=== PATIENT | male | born 1980 | race Caucasian/White ===

== ENCOUNTER 2024-08-21 12:59 | Emergency (ER) | payer OTHER, SELFPAY ==
--- NOTE | ~2024-08-21 | XR_ITS ---
EXAMINATION: XR forearm LT 2V DATE: 08/21/2024 14:33 INDICATION: Left forearm laceration. TECHNIQUE: 2 views of left forearm were obtained. COMPARISON: None. FINDINGS: Alignment is normal. No fracture. Joint spaces are normal. No elbow joint effusion. IMPRESSION: 1. No fracture or radiopaque foreign body. Reviewed, dictated and finalized at location B.
[2024-08-21 13:02] VITALS: BP 124/97; PULSE 62; RESP 16; TEMP 36.4; O2SAT 96
--- NOTE | 2024-08-21 14:15 | ED.WOUNDLAC ---
HPI - Wound/Laceration General Chief Complaint: Wound/Laceration <Jayshree Dimas PA-C - Last Filed: 08/21/24 14:17> Stated Complaint: Laceration left arm from crowbar <Jayshree Dimas PA-C - Last Filed: 08/21/24 14:17> Time Seen by Provider: 08/21/24 16:56 <Jayshree Dimas PA-C - Last Filed: 08/21/24 14:17> Focused HPI: 43-year-old male presents to the ED for laceration to his left volar aspect of his forearm that occurred a couple hours ago. Patient states he was cleaning a bee hive and using a crowbar when the car burst slipped and cut his forearm. Dressing placed upon arrival, mild bleeding. Patient is not on anticoagulants. Denies difficulty with range of motion of wrist or fingers. Last Tdap unknown. GENERAL: Well-appearing, well-nourished, and in no acute distress. HEAD: Normocephalic, atraumatic. CHEST: Clear to auscultation. ?No respiratory distress. SKIN: Approximately 4 cm linear laceration to the left volar aspect of the distal forearm with mild oozing, no evidence of active arterial bleed, no deep structures or foreign bodies visualized. Patient has full active and passive range of motion of the wrist and fingers without difficulty. Radial pulse 2 +. Sensation intact. HEART: Regular rate and rhythm.? NEURO: ?Alert and oriented x3. Patient screened in triage and initial orders placed.? ?Additional care and disposition to be based upon?diagnostic testing and treatment. <Jayshree Dimas PA-C - Last Filed: 08/21/24 14:17> Focused HPI: 43-year-old male presents to the ED for laceration to his left volar aspect of his forearm that occurred a couple hours ago. Patient states he was cleaning a bee hive and using a crowbar when the car burst slipped and cut his forearm. Dressing placed upon arrival, mild bleeding. Patient is not on anticoagulants. Denies difficulty with range of motion of wrist or fingers. Last Tdap unknown. GENERAL: Well-appearing, well-nourished, and in no acute distress. HEAD: Normocephalic, atraumatic. CHEST: Clear to auscultation. ?No respiratory distress. SKIN: Approximately 4 cm linear laceration to the left volar aspect of the distal forearm with mild oozing, no evidence of active arterial bleed, no deep structures or foreign bodies visualized. Patient has full active and passive range of motion of the wrist and fingers without difficulty. Radial pulse 2 +. Sensation intact. HEART: Regular rate and rhythm.? NEURO: ?Alert and oriented x3. Patient screened in triage and initial orders placed.? ?Additional care and disposition to be based upon?diagnostic testing and treatment. <Renetta Aaron, EMIL - Last Filed: 08/21/24 17:40> Related Data Allergies/Adverse Reactions: Allergies Allergy/AdvReac Type Severity Reaction Status Date / Time No Known Allergies Allergy Unverified 12/31/16 16:23 <Jayshree Dimas PA-C - Last Filed: 08/21/24 14:17> Review of Systems Review of Systems: All systems reviewed & are unremarkable except as noted in HPI and below <Renetta Aaron APRN - Last Filed: 08/21/24 17:40> Exam Narrative: GENERAL: Well appearing, well-nourished, non-toxic, in no acute distress. HEAD: Normocephalic, atraumatic. NECK: Supple. No adenopathy, no masses. RESPIRATORY: Airway patent, respirations nonlabored. Clear to auscultation bilaterally, no rales, rhonchi, wheezing. CARDIOVASCULAR: Regular rate and rhythm without murmurs, rubs, or gallops. Peripheral pulses 2+ and equal bilaterally. ABDOMINAL: Soft, nontender, nondistended, no hepatosplenomegaly. Normoactive BS. MUSCULOSKELETAL: Moves all extremities. Strength/ROM intact without gross deformities. SKIN: Warm, dry, normal color. No rashes. 4 cm linear laceration to the left volar aspect of the distal forearm with mild oozing, no evidence of active arterial bleed, no deep structures or foreign bodies visualized. Patient has full active and passive range of motion of the wrist and fingers without difficulty. Radial pulse 2 +. Sensation intact. NEURO: A&O X3. Speech clear. Cranial nerves II-XII grossly intact. Steady gait. No ataxic movements. PSYCHIATRIC: Appropriate mood and affect. Normal interaction. <Renetta Aaron APRN - Last Filed: 08/21/24 17:40> Course Vital Signs Vital signs: Vital Signs Temperature 36.4 C 08/21/24 13:02 Pulse Rate 62 08/21/24 13:02 Respiratory Rate 16 08/21/24 13:02 Blood Pressure 124/97 H 08/21/24 13:02 Pulse Oximetry 96 08/21/24 13:02 Temperature 36.4 C 08/21/24 13:02 Pulse Rate 62 08/21/24 13:02 Respiratory Rate 16 08/21/24 13:02 Blood Pressure 124/97 H 08/21/24 13:02 Pulse Oximetry 96 08/21/24 13:02 <Jayshree Dimas PA-C - Last Filed: 08/21/24 14:17> Vital Signs Temperature 36.4 C 08/21/24 13:02 Pulse Rate 62 08/21/24 13:02 Respiratory Rate 16 08/21/24 13:02 Blood Pressure 124/97 H 08/21/24 13:02 Pulse Oximetry 96 08/21/24 13:02 Temperature 36.4 C 08/21/24 13:02 Pulse Rate 62 08/21/24 13:02 Respiratory Rate 16 08/21/24 13:02 Blood Pressure 124/97 H 08/21/24 13:02 Pulse Oximetry 96 08/21/24 13:02 <Renetta Aaron APRN - Last Filed: 08/21/24 17:40> Procedures Laceration Laceration 1: Date: 08/21/24 <Renetta Aaron APRN - Last Filed: 08/21/24 17:40> Time: 17:20 <Renetta Aaron APRN - Last Filed: 08/21/24 17:40> Site: upper extremity <Renetta Aaron APRN - Last Filed: 08/21/24 17:40> Side (If applicable): left <Renetta Aaron APRN - Last Filed: 08/21/24 17:40> Size (cm): 4 <Renetta Aaron APRN - Last Filed: 08/21/24 17:40> Description: linear <Renetta Aaron APRN - Last Filed: 08/21/24 17:40> Depth: simple, single layer <Renetta Aaron APRN - Last Filed: 08/21/24 17:40> Local Anesthetic: lidocaine 1% and with epi <Renetta Aaron CREW TEAM MEMBER - Last Filed: 08/21/24 17:40> Amount of anesthesia used (mL): 10 <Renetta Aaron APRN - Last Filed: 08/21/24 17:40> Pre-repair: irrigated extensively <Renetta Aaron CREW TEAM MEMBER - Last Filed: 08/21/24 17:40> ====== Skin Level ======: Skin layer closed with: nylon <Renetta Aaron APRN - Last Filed: 08/21/24 17:40> Size (cm): 4-0 <Renetta Aaron APRN - Last Filed: 08/21/24 17:40> Number of sutures: 7 <Renetta Aaron CREW TEAM MEMBER - Last Filed: 08/21/24 17:40> Technique: simple, interrupted <Renetta Aaron CREW TEAM MEMBER - Last Filed: 08/21/24 17:40> ====== Subcutaneous Layer ======: ====== Muscle Layer ======: ====== Tendon Layer ======: MDM - Wound/Laceration [facility] Narrative Medical decision making narrative: 43-year-old male presents to the ED for laceration to his left volar aspect of his forearm that occurred a couple hours ago. Patient states he was cleaning a bee hive and using a crowbar when the car burst slipped and cut his forearm. Dressing placed upon arrival, mild bleeding. Patient is not on anticoagulants. Denies difficulty with range of motion of wrist or fingers. Last Tdap unknown. Labs Ordered: None necessary Imaging Ordered: Left forearm x-ray Medications Ordered: Lidocaine/epinephrine 1%, patient declined oral pain medication Results: Patient's left forearm x-ray indicates No fracture or radiopaque foreign body. Diagnosis: Left forearm laceration Patient Education/Shared MDM: Results of x-ray shared with patient. Seven sutures were placed in his left forearm to close the laceration. Patient tolerated procedure well. He was advised to keep the area clean and covered. Patient may place bacitracin to the area twice a day. He should follow-up with his PCP or urgent care for suture removal in seven days. Pt will be discharged home with no new prescriptions. Strict return precautions provided. Patient verbalized understanding is in agreement with plan. Vital signs stable at time of discharge. All questions answered. <Renetta Aaron APRN - Last Filed: 08/21/24 17:40> Differential Diagnosis Differential diagnosis: Likely laceration, abrasion and avulsion of skin <Renetta Aaron APRN - Last Filed: 08/21/24 17:40> Imaging Data Attestation: I personally reviewed and interpreted this imaging study as follows: <Renetta Aaron APRN - Last Filed: 08/21/24 17:40> Radiologist's impression: Impressions Forearm X-Ray 08/21/24 14:46 IMPRESSION: 1. No fracture or radiopaque foreign body. <Renetta Aaron APRN - Last Filed: 08/21/24 17:40> Discharge Plan Discharge Clinical Impression: Laceration <Jayshree Dimas PA-C - Last Filed: 08/21/24 14:17> Patient Disposition: Home, Self-Care <Jayshree Dimas PA-C - Last Filed: 08/21/24 14:17> Condition: Stable <CHARLENE Mathis Last Filed: 08/21/24 14:17> Instructions: Antibiotic Form, Care For Your Stitches (ED), Laceration (ED) <Jayshree Dimas PA-C - Last Filed: 08/21/24 14:17> Additional Instructions: Please return to the ER with an worsening symptoms. Follow-up with primary care provider or urgent care in seven days for suture removal. Please keep the site clean. You may allow soap and water to run over the site. Please place Bacitracin to the site twice a day and keep the site covered. <Jayshree Dimas PA-C - Last Filed: 08/21/24 14:17> Patient Language: Swazi <Jayshree Dimas PA-C - Last Filed: 08/21/24 14:17> Prescriptions: New bacitracin 500 unit/gram ointment 1 applic topical TID Qty: 14 0RF <Jayshree Dimas PA-C - Last Filed: 08/21/24 14:17> Follow-up/Referrals: UNKNOWN,DOCTOR [Primary Care Provider] - <Jayshree Dimas PA-C - Last Filed: 08/21/24 14:17> Stand Alone Forms: Work/School Release IP <Jayshree Dimas PA-C - Last Filed: 08/21/24 14:17> Time of Disposition: 17:40 <Jayshree Dimas PA-C - Last Filed: 08/21/24 14:17> 17:40 <Renetta Aaron APRN - Last Filed: 08/21/24 17:40>
--- OUTSIDE RECORDS SUMMARY | 2024-08-21 14:30 | XMS_ITS | Encounter Summary ---
Author Organization [facility] Address [address] [place] [address] Care Team Providers Care Booking Officer Name Role Phone Titi Shepard MD Primary Care Provider [phone] Encounter Details Date Type Department Care Team (Late st Contact Info) Description 09/06/2020 Lab Requisition [facility] Care DermPath Lab [address] [place] [id number] Keshia Green MD [address] [phone] Social History Tobacco Use Types Packs/Day Years Used Date Smoking Tobacco: Never Smokeless Tobacco: Current Alcohol Use Standard Drinks/Week Comments Not Currently 0 (1 standard drink = 0.6 oz pur e alcohol) AUDIT-C Answer Date Recorded Frequency of Alcohol Consumption Never 04/09/2019 Average Number of Drinks Not on file 019 Frequency of Binge Drinking Not on file 03/13 Sex and Gender Information Value Date Recorded Sex Assigned at Not on file Gender Identity Not on file Sexual Orientation Not on file documented as of this encounter Functional Status Functional Status Response Date of Assess ment Is person deaf or have serious hearing difficult y? No 09/28/2017 Is person blind or have serious difficulty seein g? No 09/28/2017 Does person have serious dif ficulty walking/climbing stairs? No 09/28/2017 Does person have difficulty dressing/bathing? No 09/28/2017 Does person have difficulty doing errands alone? No 09/28/2017 Cognitive Status Response Date of Assessm ent Does person have difficulty concentrating/remembering/making decisions? No 09/28/2017 documented as of this encounter Plan of Treatment Not on file documented as of this encounter Procedures Procedure Name Priority Date/Time Associated Diagnosis Comments DERMATOPATHOLOGY Routine 09/02/2020 3:33 AM CDT documented in this encounter Results * DERMATOPATHOLOGY (09/02/2020 3:33 AM CDT) Case Report Dermatopathology Report Case: [id number] Authorizing Provider: Keshia Green MD Collected: 09/02/2020 03:33 AM Ordering Location: [facility] DermPath Lab Received: 09/06/2020 06:49 AM Pathologist: Violeta Greer MD Specimen: Skin, left cheek 4:52 PM CDT DERMATOPATHOLOGY LABORATORY Final Diagnosis Specimen A. SKIN, left cheek: BASAL CELL CARCINOMA, NODULAR TYPE (C44.319) PRESENT AT MARGIN (see microscopic description) 4:52 PM CDT DERMATOPATHOLOGY LABORATORY Clinical History R/O BCC vs other. Check margins. 4:52 PM CDT DERMATOPATHOLOGY LABORATORY Gross Description Specimen A: Received is one formalin filled container labeled with the patient's name and designated left cheek. The specimen consists of a piece of skin measuring [id number], bisected. The margin is inked green. The specimen is bisected lengthwise and submitted in cassette 1. Jar 0. 1 4:52 PM CDT DERMATOPATHOLOGY LABORATORY Microscopic Description Specimen A. SKIN, left cheek: Within the dermis there are aggregates of basaloid cells with a high nuclear to cytoplasmic ratio and peripheral palisading. This lesion is present at the margin of the specimen. Additional deeper sections were obtained and reviewed. 1 4:52 PM CDT DERMATOPATHOLOGY LABORATORY Disclaimer An external and internal positive and negative controls are appropriate for the histochemical, immunohistochemical and immunofluorescence stain(s) in this case (if any), except where stated explicitly. The performance characteristics of the stain(s) cited in this report were developed and its performance characteristic determined by the Dermatopathology Laboratory at [facility], directed by Dr. Alex Greer. These tests need not be, and therefore are not, approved by the [place] Food and Drug Administration. The tests are used for clinical purposes. Billing Codes Specimen Charges Stain Charges 72801 1 1 4:52 PM CDT DERMATOPATHOLOGY LABORATORY Embedded Images 1 4:52 PM CDT DERMATOPATHOLOGY LABORATORY Pathology/Cytolo gy TISSUE SPECIMEN FROM SKIN / Unknown 09/02/2020 3:33 AM CDT 09/06/2020 6:49 AM CDT Keshia Green MD LAB - PATHOLOGY/C YTOLOGY ORDERABLES DERMATOPATHOLOGY LABORATORY [facility] - Department of Dermatology [facility] [address] [phone] documented in this encounter Visit Diagnoses Not on filedocumented in this encounter Care Teams Booking Officer Relationship Specialty Start Date End Date Titi Shepard MD [address] [address] [place] [address] PCP - General 09/16/17 documented as of this encounter
--- OUTSIDE RECORDS SUMMARY | 2024-08-21 14:30 | XMS_ITS | Encounter Summary ---
Author Organization [facility] Address [address] [place] [address] Care Team Providers Care Ux Information Architect Name Role Phone Titi Shepard MD Primary Care Provider [phone] Reason for Visit * Reason Comments Refill Request Encounter Details Date Type Department Care Team (Late st Contact Info) Description 03/18/2020 Refill [facility] [address] [place] [phone] Vick Nava MD [address] [place] [address] Refill Request Social History Tobacco Use Types Packs/Day Years [...] on file documented as of this encounter Visit Diagnoses Not on filedocumented in this encounter Care Teams Ux Information Architect Relationship Specialty Start Date End Date Titi Shepard MD [address] [place] [address] PCP - General 09/16/17 documented as of this encounter
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
--- OUTSIDE RECORDS SUMMARY | 2024-08-21 14:30 | XMS_ITS | Encounter Summary ---
Author Organization [facility] Address [address] [place] [address] Care Team Providers Care Casting Sorter Name Role Phone Titi Shepard MD Primary Care Provider [phone] Reason for Visit * Reason Onset Date Comments MEDICATION REFILL 03/20/2020 Encounter Details Date Type Department Care Team (Late st Contact Info) Description 03/20/2020 Refill [facility] NEURO&PSYCH [address] [place] [address] Reese Cooper MD [address] [place] [address] MEDICATION REFILL Social History Tobacco Use Types Packs/Day Years [...] No 09/28/2017 documented as of this encounter Miscellaneous Notes * Telephone Encounter - Nadege Echevarria RN - 03/22/2020 9:34 AM CDT Refill Request Dane Haider NAEL: 02/28/2020 w/Dr. Brandy RAYMUNDO due: rto x 2 months APR scheduled: 04/01/20, has no showed 1 appt and canceled another LRF: 12/17/2019 Qty Disp: 30 # of refills: 2 Allergies: No Known Allergies Pended Medication Order: Requested Prescriptions Pending Prescriptions Disp Refills ??? buPROPion XL 24hr (WELLBUTRIN-XL) 300 MG tablet 30 tablet 2 Sig: Take 1 tablet by mouth once daily documented in this encounter Plan of Treatment Not on file documented as of this encounter Visit Diagnoses Diagnosis Depressive disorder due to another medical condition with major depressive-like episode- Primary documented in this encounter Care Teams Casting Sorter Relationship Specialty Start Date End Date Titi Shepard MD [facility] [address] PCP - General 09/16/17 documented as of this encounter
--- OUTSIDE RECORDS SUMMARY | 2024-08-21 14:30 | XMS_ITS | Clinical Summary ---
Author Organization [facility] Address [address] [facility] [place] [address] Care Team Providers Care Scientific Programmer Analyst Name Role Phone Titi Shepard MD Primary Care Provider [phone] Source Comments [facility],non-owned Affiliates and Associated Physician Practices is amultiple site organization consisting of ambulatory clinics and hospital sitesin [place], [place], [place]. This disclosure is being madepursuant to the Care Everywhere program and may not contain all information available regarding this patient. Last updated 18.[facility] Allergies No known active allergies Medications [...] LF TETANUS TOX OID, ADSORBED, PF 12/20/1995,12/18/1986 Family History Relation Name Status Comments Father Alive Mother Alive Social History Tobacco Use Types Packs/Day Years [...] Mass Index 19.79 04/01/2020 11:28 AM CDT Plan of Treatment Health Maintenance Due Date Last Done Comments LIPID TESTING 1981 DTAP/TDAP/TD VACCINES (7 - Td or Tdap) 12/19/2005 12/20/1995, 12/18/1986, 10/04/1983, Additional history exists COVID-19 VACCINE ( season) 2024 INFLUENZA VACCINE (#1) 2024 DEPRESSION SCREENING 06/11/2024 ZOSTER VACCINE (1 of 2) 10/25/2031 HIB VACCINE Completed 06/16/1986 HEPATITIS B VACCINE Completed 08/08/1996, 01/21/1996, 12/20/1995 HEPATITIS C SCREENING Completed 06/15/2017 HIV SCREENING Completed 06/15/2017 HPV VACCINE Aged Out No longer eligi ble based on patient's age to complete this topic MENINGOCOCCAL (Group B) VACCINE SHARED DECISION-MAKING Aged Out No longer eligible based on patient's age to complete this topic MENINGOCOCCAL GROUPS A/C/Y/W VACCINE Aged Out No longer eligible based on patient's age to complete this topic PNEUMOCOCCAL VACCINE Aged Out No long er eligible based on patient's age to complete this topic Procedures Procedure Name Priority Date/Time Associated Diagnosis Comments HEPATITIS SCREEN ACUTE [facility] 06/15/2017 5:13 PM COUNSEL HIV-1 HIV-2 ANTIBODY + HIV P24 AG PANEL [facility] 06/15/2017 5:13 PM COUNSEL from Last 3 Months or Most Recently Relevant to Health Maintenance Results * HIV-1 HIV-2 ANTIBODY + HIV P24 AG PANEL (06/15/2017 5:13 PM COUNSEL) Pathologist [facility] HIV1/2 Ab + P24 Ag Non Reactive Non Reactive 06/15/2017 10:24 PM COUNSEL [facility] Blood BLOOD SPECIMEN / Unknown Venipuncture / Unknown 06/15/2017 5:13 PM COUNSEL 06/15/2017 5:24 PM COUNSEL Narrative [facility] - 06/15/2017 10:24 PM COUNSEL No Laboratory evidence of HIV infection. Chinedu Pennington MD LAB - CHEMISTRY JOSTIN KIM [facility] [place] [address] * HEPATITIS SCREEN ACUTE (06/15/2017 5:13 PM COUNSEL) [facility] HAV Antibody IgM Non Reactive Non Reactive 06/15/2017 9:[address] [facility] HBsAg Non Reactive Non Reactive 06/15/2017 9:[address] [facility] HBc Antibody IgM Non Reactive Non Reactive 06/15/2017 9:[address] [facility] HCV Antibody Screen Non Reactive Non Reactive 06/15/2017 9:[address] [facility] HCV S/C Ratio 0.08 0.00 - 0.79 06/15/2017 9:[address] [facility] Comment: Iuqscq-gq-plpecg ratio (S/CO) <0.80: Non Reactive Blood BLOOD SPECIMEN / Unknown Venipuncture / Unknown 06/15/2017 5:13 PM COUNSEL 06/15/2017 5:[address] [facility] - 06/15/2017 9:18 PM COUNSEL Non Reactive - Antibodies to Hepatitis C virus (HCV) were not detected, result does not exclude early acute HCV infection. Non Reactive - Antibodies to Hepatitis C virus (HCV) were not detected, result does not exclude early acute HCV infection. Chinedu Pennington MD LAB - CHEMISTRY JOSTIN KIM [facility] [address] [place] [address] from Last 3 Months or Most Recently Relevant to Health Maintenance Advance Directives Documents on File Type Date Recorded Patient Information Specialist Expl anation Adv Directive/Living Will/POA 07/05/2020 10:20 AM DURABLE POA Adv Directive/Living Will/POA 06/18/2020 2:04 PM POWER OF READING AIDE * Full Code (Latest Code Status on File) Date Activated Date Inactivated Comments 09/26/2017 7:19 PM 09/28/2017 4:26 PM * Full Code Date Activated Date Inactivated Comments 09/26/2017 3:17 AM 09/26/2017 7:19 PM * Full Code Date Activated Date Inactivated Comments 06/15/2017 3:29 PM 06/18/2017 12:34 PM Care Teams Scientific Programmer Analyst Relationship Specialty Start Date End Date Titi Shepard MD [address] [facility] [address] [place] [address] PCP - General 09/16/17
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
[2024-08-21] MEDS: TETANUS,DIPHTHERIA,AC PERTUSSIS ADULT (0.5 ML) BOOSTRIX IM (15:34)
--- OUTSIDE RECORDS SUMMARY | 2024-08-21 17:42 | XMS_ITS | Referral Summary ---
Author Organization [facility] Address [address] [facility] [place] [address] Care Team Providers Care Manufacturing Operator Name Role Phone Titi Shepard MD Primary Care Provider [phone] Source Comments [facility],non-owned Affiliates and Associated Physician Practices is amultiple site organization consisting of ambulatory clinics and hospital sitesin [place], [place], [place] and [place]. This disclosure is being madepursuant to the Care Everywhere program and may not contain all information available regarding this patient. Last updated 18.[facility] Allergies No known active allergies Medications * [...] Date/Time Associated Diagnosis Comments HEPATITIS SCREEN ACUTE [facility] 06/15/2017 5:13 PM COMMUNICATION ANALYST HIV-1 HIV-2 ANTIBODY + HIV P24 AG PANEL [facility] 06/15/2017 5:13 PM COMMUNICATION ANALYST from Last 3 Months or Most Recently Relevant to Health Maintenance Results * HIV-1 HIV-2 ANTIBODY + HIV P24 AG PANEL (06/15/2017 5:13 PM COMMUNICATION ANALYST) HIV1/2 Ab + P24 Ag Non Reactive Non Reactive 06/15/2017 10:24 PM COMMUNICATION ANALYST [facility] Blood BLOOD SPECIMEN / Unknown Venipuncture / Unknown 06/15/2017 5:13 PM COMMUNICATION ANALYST 06/15/2017 5:24 PM COMMUNICATION ANALYST Narrative [facility] - 06/15/2017 10:24 PM COMMUNICATION ANALYST No Laboratory evidence of HIV infection. Chinedu Pennington MD LAB - CHEMISTRY JOSTIN KIM [facility] [address] [place] [address] * HEPATITIS SCREEN ACUTE (06/15/2017 5:13 PM COMMUNICATION ANALYST) HAV Antibody IgM Non Reactive Non Reactive 06/15/2017 9:18 PM COMMUNICATION ANALYST [facility] HBsAg Non Reactive Non Reactive 06/15/2017 9:18 PM COMMUNICATION ANALYST [facility] HBc Antibody IgM Non Reactive Non Reactive 06/15/2017 9:18 PM COMMUNICATION ANALYST [facility] HCV Antibody Screen Non Reactive Non Reactive 06/15/2017 9:18 PM COMMUNICATION ANALYST [facility] HCV S/C Ratio 0.08 0.00 - 0.79 06/15/2017 9:18 PM COMMUNICATION ANALYST [facility] Comment: Dhhdew-zc-gzfmoi ratio (S/CO) <0.80: Non Reactive Blood BLOOD SPECIMEN / Unknown Venipuncture / Unknown 06/15/2017 5:13 PM COMMUNICATION ANALYST 06/15/2017 5:24 PM COMMUNICATION ANALYST Narrative [facility] - 06/15/2017 9:18 PM COMMUNICATION ANALYST Non Reactive - Antibodies to Hepatitis C virus (HCV) were not detected, result does not exclude early acute HCV infection. Non Reactive - Antibodies to Hepatitis C virus (HCV) were not detected, result does not exclude early acute HCV infection. Chinedu Pennington MD LAB - CHEMISTRY JOSTIN KIM Performing Organization Address City/[facility]/ZIP Co de Phone Number [facility] [address] [place] [address] from Last 3 Months or Most Recently Relevant to Health Maintenance Administered Medications Advance Directives Documents on File Type Date Recorded Patient Aircraft Charter Dispatcher Expl anation Adv Directive/Living Will/POA 07/05/2020 10:20 AM DURABLE POA Adv Directive/Living Will/POA 06/18/2020 2:04 PM POWER OF LEGAL SERVICES PROFESSIONAL * Full Code (Latest Code Status on File) Date Activated Date Inactivated Comments 09/26/2017 7:19 PM 09/28/2017 4:26 PM * Full Code Date Activated Date Inactivated Comments 09/26/2017 3:17 AM 09/26/2017 7:19 PM * Full Code Date Activated Date Inactivated Comments 06/15/2017 3:29 PM 06/18/2017 12:34 PM Care Teams Manufacturing Operator Relationship Specialty Start Date End Date Titi Shepard MD [id number] [place] [id number] PCP - General 09/16/17
--- OUTSIDE RECORDS SUMMARY | 2024-08-21 17:42 | XMS_ITS | Encounter Summary ---
Author Organization [facility] Address [address] [place] [address] Care Team Providers Care Chip Tester Name Role Phone Titi Shepard MD Primary Care Provider [phone] Reason for Visit * Reason Onset Date Comments MEDICATION REFILL 03/20/2020 Encounter Details Date Type Department Care Team (Late st Contact Info) Description 03/20/2020 Refill [facility] NEURO&PSYCH [address] [place] [address] Reese Cooper MD [address] [place] [address] MEDICATION REFILL Social History Tobacco Use Types [...] Primary documented in this encounter Care Teams Chip Tester Relationship Specialty Start Date End Date Titi Shepard MD [facility] [address] PCP - General 09/16/17 documented as of this encounter
--- OUTSIDE RECORDS SUMMARY | 2024-08-21 17:42 | XMS_ITS | Clinical Summary ---
Author Organization [facility] Address [address] [place] [address] Care Team Providers Care Lead Athlete Name Role Phone MISSAEL Sinclair Jr., Rishabh Monroy Primary Care Provide r Keshia Green MD Unavailable [phone] Allergies No known active allergies Medications buPROPion [...] Vaccines Discontinued Medical Devices Implanted Type Area Duplicate Maker Device Identifier Shelf Expiration Date Model / Serial / Lot Plate Plate Left: Femur Plate- 4 Implanted:10/10 (Quantity not on file) Plate N/A: Forehead Plate- 4 Implanted:10/10 (Quantity not on file) Plate Right: Wrist Insurance [facility] [employer] [place] [place] Advance Directives For more information, please contact: [phone] Documents on File Type Date Recorded Patient Biomass Facilitator Expl anation ADVANCE DIRECTIVE 03/03/2022 * Full Code (Latest Code Status on File) Date Activated Date Inactivated Comments 02/23/2022 2:16 PM 02/25/2022 5:35 PM Care Teams Lead Athlete Relationship Specialty Start Date End Date Rishabh Sinclair Jr., PA PCP - General Family Medicine 06/14/20 Keshia Green MD [address] [place] [address] Referring Physician Family Medicine 06/14/20
--- OUTSIDE RECORDS SUMMARY | 2024-08-21 17:42 | XMS_ITS | Clinical Summary ---
Author Organization [facility] Address [address] [place] [address] Care Team Providers Care Skills Auditor Name Role Phone Titi Shepard MD Primary Care Provider [phone] Source Comments [facility],non-owned Affiliates and Associated Physician Practices is amultiple site organization consisting of ambulatory clinics and hospital sitesin [place], [place], [place] and [place]. This disclosure is being madepursuant to the Care Everywhere program and may not contain all information available regarding this patient. Last updated 18.[facility] Allergies No known active allergies [...] HEPATITIS SCREEN ACUTE [facility] 06/15/2017 5:13 PM ELECTRIC METER TESTER HIV-1 HIV-2 ANTIBODY + HIV P24 AG PANEL [facility] 06/15/2017 5:13 PM ELECTRIC METER TESTER from Last 3 Months or Most Recently Relevant to Health Maintenance Results * HIV-1 HIV-2 ANTIBODY + HIV P24 AG PANEL (06/15/2017 5:13 PM ELECTRIC METER TESTER) Pathologist [facility] HIV1/2 Ab + P24 Ag Non Reactive Non Reactive 06/15/2017 10:24 PM ELECTRIC METER TESTER [facility] Blood BLOOD SPECIMEN / Unknown Venipuncture / Unknown 06/15/2017 5:13 PM ELECTRIC METER TESTER 06/15/2017 5:24 PM ELECTRIC METER TESTER Narrative [facility] - 06/15/2017 10:24 PM ELECTRIC METER TESTER No Laboratory evidence of HIV infection. Chinedu Pennington MD LAB - CHEMISTRY JOSTIN KIM [facility] [place] [address] * HEPATITIS SCREEN ACUTE (06/15/2017 5:13 PM ELECTRIC METER TESTER) [facility] HAV Antibody IgM Non Reactive Non Reactive 06/15/2017 9:18 PM ELECTRIC METER TESTER [facility] HBsAg Non Reactive Non Reactive 06/15/2017 9:18 PM ELECTRIC METER TESTER [facility] HBc Antibody IgM Non Reactive Non Reactive 06/15/2017 9:18 PM ELECTRIC METER TESTER [facility] HCV Antibody Screen Non Reactive Non Reactive 06/15/2017 9:18 PM ELECTRIC METER TESTER [facility] HCV S/C Ratio 0.08 0.00 - 0.79 06/15/2017 9:18 PM ELECTRIC METER TESTER [facility] Comment: Mpfuyb-ww-ecbiru ratio (S/CO) <0.80: Non Reactive Blood BLOOD SPECIMEN / Unknown Venipuncture / Unknown 06/15/2017 5:13 PM ELECTRIC METER TESTER 06/15/2017 5:24 PM ELECTRIC METER TESTER Narrative [facility] - 06/15/2017 9:18 PM ELECTRIC METER TESTER Non Reactive - Antibodies to Hepatitis C virus (HCV) were not detected, result does not exclude early acute HCV infection. Non Reactive - Antibodies to Hepatitis C virus (HCV) were not detected, result does not exclude early acute HCV infection. Chinedu Pennington MD LAB - CHEMISTRY JOSTIN KIM [facility] [address] [place] [address] from Last 3 Months or Most Recently Relevant to Health Maintenance Advance Directives Documents on File Type Date Recorded Patient Casing In Line Setter Expl anation Adv Directive/Living Will/POA 07/05/2020 10:20 AM DURABLE POA Adv Directive/Living Will/POA 06/18/2020 2:04 PM POWER OF RN HOUSE SUPERVISOR * Full Code (Latest Code Status on File) Date Activated Date Inactivated Comments 09/26/2017 7:19 PM 09/28/2017 4:26 PM * Full Code Date Activated Date Inactivated Comments 09/26/2017 3:17 AM 09/26/2017 7:19 PM * Full Code Date Activated Date Inactivated Comments 06/15/2017 3:29 PM 06/18/2017 12:34 PM Care Teams Skills Auditor Relationship Specialty Start Date End Date Titi Shepard MD [address] [facility] [address] [place] [address] PCP - General 09/16/17
--- OUTSIDE RECORDS SUMMARY | 2024-08-21 17:42 | XMS_ITS | Encounter Summary ---
Author Organization [facility] Address [address] [facility] [place] [address] Care Team Providers Care Shovel Loader Operator Name Role Phone Titi Shepard MD Primary Care Provider [phone] Encounter Details Date Type Department Care Team (Late st Contact Info) Description 09/06/2020 Lab Requisition [facility] Care DermPath Lab [address] [facility], [place] [address] Keshia Green MD [address] [address] Social History Tobacco Use Types [...] AM CDT) Case Report Dermatopathology Report Case: [id number] Authorizing Provider: Keshia Green MD Collected: 09/02/2020 03:33 AM Ordering Location: [facility] DermPath Lab Received: 09/06/2020 06:49 AM Pathologist: [...] consists of a piece of skin measuring [id number], bisected. The margin is inked green. The [...] characteristic determined by the Dermatopathology Laboratory at [facility], directed by Dr. Alex Greer. These tests need not be, and therefore are not, approved by the [place] Food and Drug Administration. The tests are used for clinical purposes. Billing Codes Specimen Charges Stain Charges 01869 1 1 4:52 PM CDT DERMATOPATHOLOGY LABORATORY Embedded Images 1 4:52 PM CDT DERMATOPATHOLOGY LABORATORY Pathology/Cytolo gy TISSUE SPECIMEN FROM SKIN / Unknown 09/02/2020 3:33 AM CDT 09/06/2020 6:49 AM CDT Keshia Green MD LAB - PATHOLOGY/C YTOLOGY ORDERABLES DERMATOPATHOLOGY LABORATORY [facility] - Department of Dermatology [facility] Special[facility] [address] [facility], [address]rd Floor [address] [phone] documented in this encounter Visit Diagnoses Not on filedocumented in this encounter Care Teams Shovel Loader Operator Relationship Specialty Start Date End Date Titi Shepard MD [address] [facility] [address] [place] [address] PCP - General 09/16/17 documented as of this encounter
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
--- OUTSIDE RECORDS SUMMARY | 2024-08-21 17:42 | XMS_ITS | Patient Health Summary ---
Author Organization [facility] Address [address] [place] [address] Care Team Providers Care Recovery Analyst Name Role Phone Titi Shepard MD Primary Care Provider [phone] Note from [facility],non-owned Affiliates and Associated Physician Practices is amultiple site organization consisting of ambulatory clinics and hospital sitesin [place], [place], [place] and [place]. This disclosure is being madepursuant to the Care Everywhere program and may not contain all information available regarding this patient. Last updated 18.[facility] Allergies No known active [...] AM CDT) Case Report Dermatopathology Report Case: [id number] Authorizing Provider: Keshia Green MD Collected: 09/02/2020 03:33 AM Ordering Location: [facility] DermPath Lab Received: 09/06/2020 06:49 AM Pathologist: [...] consists of a piece of skin measuring [id number], bisected. The margin is inked green. The [...] characteristic determined by the Dermatopathology Laboratory at [facility], directed by Dr. Alex Greer. These tests need not be, and therefore are not, approved by the [place] Food and Drug Administration. The tests are used for clinical purposes. Billing Codes Specimen Charges Stain Charges 86497 1 4:52 PM CDT DERMATOPATHOLOGY LABORATORY Embedded Images 4:52 PM CDT DERMATOPATHOLOGY LABORATORY Pathology/Cytolo gy TISSUE SPECIMEN FROM SKIN / Unknown 09/02/2020 3:33 AM CDT 09/06/2020 6:49 AM CDT Keshia Green MD LAB - PATHOLOGY/C YTOLOGY ORDERABLES DERMATOPATHOLOGY LABORATORY [facility] Department of Dermatology [facility] Medicine [address] [place], [place] [address] [phone] * CBC WITH DIFFERENTIAL (08/07/2019 2:11 PM COMMUNICATIONS WRITER) Only the most recent of4 resultswithin the time period is included. Pathologist [facility] White Blood Cell Count 5.6 3.8 - [...] Comment: REPORT COMMENT: FASTING:NO Test Performed at: [facility] [address] [place] [address] YAMILE BRASWELL DO,MPH Blood BLOOD SPECIMEN / Unknown 08/07/2019 2:11 PM COMMUNICATIONS WRITER 08/07/2019 2:12 PM COMMUNICATIONS WRITER Vick Nava MD LAB - HEMATOLOGY ORD ERABLES [facility] [address] [place] [address] * (ABNORMAL) COMPREHENSIVE METABOLIC PANEL (09/27/2017 3:38 PM CDT) Only the most recent of2 resultswithin the time period is included. Pathologist [facility] BUN 13 7 - 26 mg/dL 09/27/2017 4:32 PM [facility] Creatinine 0.8 0.6 - 1.2 mg/dL 09/27/2017 4:32 PM [facility] Sodium 136 136 - 145 mmol/L 09/27/2017 4:32 PM [facility] Potassium 3.9 3.5 - 4.5 mmol/L 09/27/2017 4:32 PM [facility] Chloride 101 98 - 107 mmol/L 09/27/2017 4:32 PM [facility] CO2 23 22 - 29 mmol/L 09/27/2017 4:32 PM [facility] Glucose 111 70 - 115 mg/dL 09/27/2017 4:32 PM [facility] Calcium 10.0 8.4 - 10.2 mg/dL 09/27/2017 4:32 PM [facility] Protein Total 8.1 6.0 - 8.3 g/dL 09/27/2017 4:32 PM [facility] Albumin 3.7 3.4 - 5.0 g/dL 09/27/2017 4:32 PM [facility] Bilirubin Total 0.8 0.2 - 1.2 mg/dL 09/27/2017 4:32 PM [facility] Alkaline Phosphatase 94 40 - 150 Units/L 09/27/2017 4:32 PM [facility] ALT 55 0 - 55 Units/L 09/27/2017 4:32 PM [facility] AST 35(H) 5 - 34 Units/L 09/27/2017 4:32 PM [facility] Anion Gap 16 8 - 18 09/27/2017 4:32 PM [facility] BUN/Creatinine Ratio 16 7 - 23 09/27/2017 4:32 PM [facility] Osmolality Calculated 283 270 - 300 mOsm/kg 09/27/2017 4:32 PM [facility] Albumin/Globulin Ratio 0.8(L) 1.1 - 2.3 09/27/2017 4:32 PM [facility] eGFR >60 >60 mL/min/1.7 3 m2 09/27/2017 4:32 PM [facility] Blood BLOOD SPECIMEN / Unknown Lab Venipuncture / Unknown 09/27/2017 3:38 PM CDT 09/27/2017 3:38 PM CDT Ruby Christiansen MD LAB - CHEMISTRY [facility] Performing Organization Address City/[facility]/ZIP Co de Phone Number [address] [phone] * MAGNESIUM BLOOD (09/27/2017 3:38 PM CDT) Only the most recent of2 resultswithin the time period is included. [facility] Magnesium 1.7 1.6 - 2.6 mg/dL 09/27/2017 4:32 PM CDT [facility] Blood BLOOD SPECIMEN / Unknown Lab Venipuncture / Unknown 09/27/2017 3:38 PM CDT 09/27/2017 3:38 PM CDT Ruby Christiansen MD LAB - CHEMISTRY [facility] Performing Organization Address [facility] de Phone Number [address] [phone] * (ABNORMAL) DRUG SCREEN TOX URINE PANEL (09/26/2017 2:49 PM CDT) Only the most recent of2 resultswithin the time period is included. [facility] Amphetamines Screen Urine Negative Negative : < 1000 ng/mL 09/26/2017 3:27 PM [facility] Barbiturates Screen Urine Negative Negative : < 200 ng/mL 09/26/2017 3:27 PM [facility] Benzodiazepine Screen Urine Positive(A) Negative : < 200 ng/mL 09/26/2017 3:27 PM [facility] Comment: Positive urine benzodiazepine screening results should be confirmed by another generally accepted non-immunological method such as gas chromatography or mass spectrometry. Opiates Urine Negative Negative : < 300 ng/mL 09/26/2017 3:27 PM [facility] Cocaine Metabolites Urine Positive(A) Negative : < 300 ng/mL 09/26/2017 3:27 PM [facility] Comment: Positive urine cocaine metabolites screening results should be confirmed by another generally accepted non-immunological method such as gas chromatography or mass spectrometry. Phencyclidine Screen Urine Negative Negative : < 25 ng/ml 09/26/2017 3:27 PM [facility] Cannabinoids Screen Urine Positive(A) Negative : <50 ng/mL 09/26/2017 3:27 PM [facility] Comment: Positive urine cannabinoids (THC) screening results should be confirmed by another generally accepted non-immunological method such as gas chromatography or mass spectrometry. Methadone Screen Urine Negative Negative : < 300 ng/mL 09/26/2017 3:27 PM [facility] Urine URINE / Unknown Collection / Unknown 09/26/2017 2:49 PM CDT 09/26/2017 2:53 PM CDT [facility] - 09/26/2017 3:27 PM CDT The Urine Toxicology Screening Panel does not screen for Propoxyphene, Meprobamate, Carisoprodol, Trazodone, hlza-qhx-whccpub medications and/or volatiles (Acetone, Isopropanol, Methanol or Ethylene Glycol). Ethanol, Salicylate, Acetaminophen, Tricyclic Antidepressants and several therapeutic drugs may be individually assayed in serum or plasma specimen. Toxicology testing by the [facility] is an aid to medical diagnosis and treatment of patients. No documented chain of custody was maintained. Results are intended to be used for clinical purposes only. Reese Hall MD LAB - URINE CHEMISTR Y ORDERABLES [address] [phone] * (ABNORMAL) BASIC METABOLIC PANEL (CALCIUM TOTAL) (09/26/2017 4:58 AM CDT) BUN 14 7 - 26 mg/dL 09/26/2017 5:17 AM T [facility] Creatinine 0.7 0.6 - 1.2 mg/dL 09/26/2017 5:17 AM [facility] Sodium 139 136 - 145 mmol/L 09/26/2017 5:17 AM [facility] Potassium 3.9 3.5 - 4.5 mmol/L 09/26/2017 5:17 AM [facility] Chloride 102 98 - 107 mmol/L 09/26/2017 5:17 AM [facility] CO2 26 22 - 29 mmol/L 09/26/2017 5:17 AM [facility] Glucose 97 70 - 115 mg/dL 09/26/2017 5:17 AM [facility] Calcium 10.3(H) 8.4 - 10.2 mg/dL 09/26/2017 5:17 AM [facility] Anion Gap 15 8 - 18 09/26/2017 5:17 AM [facility] BUN/Creatinine Ratio 20 7 - 23 09/26/2017 5:17 AM [facility] Osmolality Calculated 288 270 - 300 mOsm/kg 09/26/2017 5:17 AM [facility] eGFR >60 >60 mL/min/1.7 3 m2 09/26/2017 5:17 AM [facility] Blood BLOOD SPECIMEN / Unknown Venipuncture / Unknown 09/26/2017 4:58 AM CDT 09/26/2017 4:58 AM CDT Francisco Duggan MD LAB - CHEMISTRY O RDERABLES [address] [phone] * LIPASE BLOOD (09/25/2017 10:56 PM CDT) Pathologist [facility] Lipase 66 8 - 78 Units/L 09/25/2017 11:15 PM [facility] Blood BLOOD SPECIMEN / Unknown Venipuncture / Unknown 09/25/2017 10:56 PM CDT 09/25/2017 10:59 PM CDT Awa Diallo MD LAB - CHEMISTRY [facility] [address] [phone] * ALCOHOL ETHYL BLOOD (09/25/2017 10:27 PM CDT) Only the most recent of2 resultswithin the time period is included. Pathologist [facility] Interpretation Ethanol None Detected None Detected mg/dL 09/25/2017 10:41 PM CDT [facility] Comment: Ethanol levels less than 10 mg/dL are resulted as None detected . Blood BLOOD SPECIMEN / Unknown Venipuncture / Unknown 09/25/2017 10:27 PM CDT 09/25/2017 10:27 PM CDT Awa Diallo MD LAB - CHEMISTRY [facility] [address] [place] [address] * (ABNORMAL) HEPATIC FUNCTION PANEL (09/25/2017 8:56 PM CDT) Pathologist [facility] Protein Total 8.4(H) 6.0 - 8.3 g/dL 018 9:18 PM [facility] Albumin 3.9 3.4 - 5.0 g/dL 09/25/2017 9:18 PM [facility] Bilirubin Total 0.6 0.2 - 1.2 mg/dL 09/09 9:18 PM [facility] Bilirubin Conjugated 0.3 0.0 - 0.5 mg/dL 09/25/2017 9:18 PM [facility] Bilirubin Unconjugated 0.3 Unconjugated Bilirubin is a calculated value: Reference ranges have not been established. mg/dL 09/25/2017 9:18 PM [facility] Alkaline Phosphatase 100 40 - 150 Units/L 09/25/2017 9:18 PM [facility] ALT 67(H) 0 - 55 Units/L 09/25/2017 9:18 PM [facility] AST 49(H) 5 - 34 Units/L 09/25/2017 9:18 PM [facility] Albumin/Globulin Ratio 0.9(L) 1.1 - 2.3 09/25/2017 9:18 PM [facility] Blood BLOOD SPECIMEN / Unknown Venipuncture / Unknown 09/25/2017 8:56 PM CDT 09/25/2017 8:56 PM CDT Awa Diallo MD LAB - CHEMISTRY [facility] [address] [phone] * HIV-1 HIV-2 ANTIBODY + HIV P24 AG PANEL (06/15/2017 5:13 PM COMMUNICATIONS WRITER) Pathologist [facility] HIV1/2 Ab + P24 Ag Non Reactive Non Reactive 06/15/2017 10:24 PM COMMUNICATIONS WRITER [facility] Blood BLOOD SPECIMEN / Unknown Venipuncture / Unknown 06/15/2017 5:13 PM COMMUNICATIONS WRITER 06/15/2017 5:24 PM COMMUNICATIONS WRITER Narrative [facility] - 06/15/2017 10:24 PM COMMUNICATIONS WRITER No Laboratory evidence of HIV infection. Chinedu Pennington MD LAB - CHEMISTRY [facility] K[facility] Performing Organization Address [facility] Co de Phone Number [facility] [address] [place] [address] * HEPATITIS SCREEN ACUTE (06/15/2017 5:13 PM COMMUNICATIONS WRITER) [facility] HAV Antibody IgM Non Reactive Non Reactive 06/15/2017 9:18 PM COMMUNICATIONS WRITER [facility] HBsAg Non Reactive Non Reactive 06/15/2017 9:18 PM COMMUNICATIONS WRITER [facility] HBc Antibody IgM Non Reactive Non Reactive 06/15/2017 9:18 PM [facility] HCV Antibody Screen Non Reactive Non Reactive 06/15/2017 9:18 PM [facility] HCV S/C Ratio 0.08 0.00 - 0.79 06/15/2017 9:18 PM COMMUNICATIONS WRITER [facility] Comment: Winnep-vf-dvfick ratio (S/CO) <0.80: Non Reactive Blood BLOOD SPECIMEN / Unknown Venipuncture / Unknown 06/15/2017 5:13 PM COMMUNICATIONS WRITER 06/15/2017 5:24 PM COMMUNICATIONS WRITER Narrative [facility] - 06/15/2017 9:18 PM COMMUNICATIONS WRITER Non Reactive - Antibodies to Hepatitis C virus (HCV) were not detected, result does not exclude early acute HCV infection. Non Reactive - Antibodies to Hepatitis C virus (HCV) were not detected, result does not exclude early acute HCV infection. Chinedu Pennington MD LAB - CHEMISTRY [facility] K[facility] Performing Organization Address City/[facility]/ZIP Co de Phone Number [facility] [address] [place] [address] * PT-INR (06/15/2017 5:12 PM COMMUNICATIONS WRITER) PT 9.7 9.5 - 11.6 sec 06/15/2017 6:06 PM COMMUNICATIONS WRITER [facility] INR 1.0 0.9 - 1.1 06/15/2017 6:06 PM COMMUNICATIONS WRITER [facility] Blood BLOOD SPECIMEN / Unknown Venipuncture / Unknown 06/15/2017 5:12 PM COMMUNICATIONS WRITER 06/15/2017 5:25 PM COMMUNICATIONS WRITER Narrative [facility] - 06/15/2017 6:06 PM COMMUNICATIONS WRITER Conventional Warfarin Anticoagulant Therapy: INR Reference Range: 2.0-3.0 Intensive Warfarin Anticoagulant Therapy: INR Reference Range: 2.5-3.5 Chinedu Pennington MD LAB - COAGULATION OR DERABLES [facility] [address] [place] [address] Care Teams Recovery Analyst Relationship Specialty Start Date End Date Titi Shepard MD [address] [place] [id number] PCP - General 09/16/17
--- OUTSIDE RECORDS SUMMARY | 2024-08-21 17:42 | XMS_ITS | Encounter Summary ---
Author Organization [facility] Address [address] [place] [address] Care Team Providers Care Project Associate Name Role Phone Titi Shepard MD Primary Care Provider [phone] Reason for Visit * Reason Comments Refill Request Encounter Details Date Type Department Care Team (Late st Contact Info) Description 03/18/2020 Refill [facility] [address] [place] [phone] Vick Nava MD [address] [place] [address] Refill Request Social History Tobacco Use Types [...] on filedocumented in this encounter Care Teams Project Associate Relationship Specialty Start Date End Date Titi Shepard MD [id number] [place] [address] PCP - General 09/16/17 documented as of this encounter
--- OUTSIDE RECORDS SUMMARY | 2024-08-21 17:42 | XMS_ITS | Referral Summary ---
Author Organization [facility] Address [address] [place] [address] Care Team Providers Care Accuracy Expert Name Role Phone MISSAEL Sinclair Jr., Rishabh Monroy Primary Care Provide r Keshia Green MD Unavailable [phone] Allergies No known active allergies Medications buPROPion [...] on file Medical Devices Implanted Type Area Loading Unit Tool Setter Device Identifier Shelf Expiration Date Model / Serial / Lot Plate Plate Left: Femur Plate- 4 Implanted:10/10 (Quantity not on file) Plate N/A: Forehead Plate- 4 Implanted:10/10 (Quantity not on file) Plate Right: Wrist Insurance [employer] [facility] Advance Directives For more information, please contact: [phone] Documents on File Type Date Recorded Patient Greeter Expl anation ADVANCE DIRECTIVE 03/03/2022 * Full Code (Latest Code Status on File) Date Activated Date Inactivated Comments 02/23/2022 2:16 PM 02/25/2022 5:35 PM Care Teams Accuracy Expert Relationship Specialty Start Date End Date Rishabh Sinclair Jr., PA PCP - General Family Medicine 06/14/20 Keshia Green MD [address] [place] [id number] Referring Physician Family Medicine 06/14/20
== END 2024-08-21 17:51 | disposition home or self-care (01) ==
PROVIDERS: Emergency Provider Registered Nurse
DX: S51.812A Laceration without foreign body of left forearm, initial encounter (principal); Z23 Encounter for immunization; W27.8XXA Contact with other nonpowered hand tool, initial encounter
CPT/HCPCS: 12002; 73090; 90471; 90715; 99283